=== PATIENT | male | born 1950 | race Caucasian/White ===

== ENCOUNTER 2025-02-27 02:52 | Emergency (ER) | payer MEDICARE, BC, SELFPAY ==
[2025-02-27] VITALS (8 sets, daily range): BP systolic 111–140; BP diastolic 70–94; BMI 25.5
--- NOTE | 2025-02-27 03:03 | ED.GENMED ---
Addendum entered and electronically signed by Carroll Hernández PA-C 02/28/25 10:03:
Positive blood culture, result faxed to [facility] at [phone]
Original Note:
History of Present Illness
General
Chief Complaint: Abdominal Symptoms
Time Seen by Provider: 02/27/25 03:03
History of Present Illness
History of Present Illness:
FOCUSED PAST MEDICAL HISTORY
- Had robotic prostatectomy 3 days ago at [facility]
REVIEW OF OLD RECORDS
- The patient was seen in the Emergency Department in 2013 related to abdominal pain
Note:
CHIEF COMPLAINT(S)
Post-operative nausea and vomiting, abdominal distention, and difficulty breathing following a recent prostatectomy.
HISTORY OF PRESENT ILLNESS
The patient is a 74-year-old male with a history of prostate cancer who underwent robotic-assisted laparoscopic radical prostatectomy with bilateral pelvic lymph node dissection on the . The procedure was performed at [facility], following which
the patient was discharged home. The patient traveled afterward to visit family and attend a recital. As of Thursday night, the patient began experiencing significant vomiting, reporting approximately seven episodes with large volumes of yellow
emesis. The patient describes abdominal distention and a sensation of fullness extending into the chest, resulting in dyspnea. The vomiting ceased around 4 PM, but the abdominal fullness persists. Additionally, the patient developed hiccups, and
following advice, the family refrained from administering further dicyclomine, which the patient had taken for the hiccups. Vital signs reveal adequate oxygen saturation. Surgical wounds are observed on the anterior abdominal wall with scattered
ecchymosis; no acute complications from the surgery were noted in the surgical records. The patient is presently experiencing nausea without significant pain. Prior interventions include one dose of Zofran administered by the patients for
nausea, which provided temporary relief.
EXTERNAL RECORDS REVIEWED
According to records from [facility], the patient underwent robotic-assisted laparoscopic radical prostatectomy with bilateral pelvic lymph node dissection for prostate cancer. There are recent surgical notes from Dr. Joy, indicating no initial
complications from the surgery.
PHYSICAL EXAM
General: Alert, in moderate distress due to nausea and abdominal discomfort.
Skin: Warm, dry, noted ecchymosis from surgical wounds over the anterior abdominal wall.
Neck: Supple, trachea midline.
Cardiovascular: Tachycardic, regular
Respiratory: Respirations are non-labored.
Gastrointestinal: Minimal distention of the abdomen, mild diffuse abdominal tenderness, no peritoneal signs
Musculoskeletal: Normal range of motion, normal strength.
Neurological: Alert and oriented to person, place, time, and situation, no focal neurological deficit observed.
Psychiatric: Cooperative, appropriate mood & affect.
PROBLEM LIST
Acute:
- Post-operative nausea and vomiting
- Abdominal distention and dyspnea
PLAN
- Initiate intravenous fluids for hydration
- Administer antiemetic for nausea relief as requested by the patient.
- Perform a computed tomography (CT) scan to evaluate possible ileus or other postoperative complications.
- Consider nasogastric tube placement for gastric decompression if symptoms persist and are suggestive of bowel obstruction.
DIFFERENTIAL DIAGNOSIS
The Differential Diagnosis includes, in no particular order and is not limited to:
1. Post-operative ileus
2. Bowel obstruction
3. Anastomotic leak
4. Infectious gastroenteritis
5. Post-operative hematoma
6. Peritonitis
7. Torsion or strangulation of bowel
8. Pancreatitis
9. Medication-induced nausea
10. Gastroesophageal reflux disease exacerbation.
SUMMARY OF ENCOUNTER
The patient was evaluated in the emergency department due to post-operative symptoms following prostatectomy, which included nausea, vomiting, and abdominal distention. During the visit, a small bowel obstruction was identified, likely related to an
obstruction transition point at a hernia site. An NG tube was placed, providing significant relief to the patient. The patients lactic acid levels, initially elevated, showed improvement following intravenous fluid administration. Despite mild
tachycardia, the patients overall condition improved. Thorazine was administered for hiccup management.
DISPOSITION
Transfer to [facility] for further management.
ASSESSMENT
Small bowel obstruction possibly related to hernia.
EMERGENCY TREATMENTS ADMINISTERED
Intravenous fluids administered for hydration; Thorazine (chlorpromazine) administered for hiccups; NG tube placement for gastric decompression.
PLAN
Transfer to [facility] for further evaluation and management of bowel obstruction. Consider surgical consultation for potential intervention related to the hernia site.
INDEPENDENT REVIEW OF LABS AND INTERPRETATION OF TESTS
My independent review of lactic acid indicates initial elevation improved after IV fluids (from 4 to 1.7).
MEDICATION RECONCILIATION
Thorazine (chlorpromazine) administered for hiccups.
MEDICAL DECISION MAKING
-Complexity of Data Reviewed: Chronic conditions affecting care include prostate cancer and recent prostatectomy.
-Data:
Category 2: My independent interpretation of patients condition suggests small bowel obstruction secondary to hernia site involvement.
Category 3: Discussion of management with transferring facility for further evaluation and surgical consideration.
-Risk: Prescription medication was administered as Thorazine was given for hiccups. Consideration for admission was arranged with transfer for further management.
DIAGNOSIS
Small bowel obstruction, ICD-10 K56.60.
UPDATE
- Patient lives in [facility] with recent surgery at [facility]
- Marked improvement after NG tube
- Lactic 1.4-1.7 after IV fluids
- Awaiting transfer to [facility] as ER to ER transfer, I spoke to Dr. Lala (ER), Dr. Smith (Gen Surg), Dr. Cabrera (Urol)
- I attempted reduction of the left inguinal hernia and it does appear more flattened and he has no significant pain currently
- Added Thorazine as well today,
Past History
Past History
ED Past Medical History: Hypercholesterolemia, Psychiatric (Anxiety) and Other (Prostatitis, bladder spasms)
ED Past Surgical History: Other (Inguinal hernia repair)
Social History
Tobacco: Non-smoker
Alcohol: Occasional
Personal:
Living: with family
Family History
Family History: Negative Diabetes or Early CAD
Phy Exam
Physical Exam
Physical Exam:
See HPI
Course
Orders/Labs/Results
Orders:
Orders
02/27/25 03:13
CT Pe/abd/pel W Urgent
Reason For Exam: post op SOB, severe vomiting after robotic prostectomy
Complete Blood Count/With Diff Urgent
Comprehensive Metabolic Panel Urgent
Lactic Acid Q4H
Comment: CANCEL 2nd LACTIC ACID IF 1st LACTIC ACID IS LESS THAN 2
Urinalysis Reflex To Culture Urgent
Date Specimen was Collected: 02/27/25
Time Specimen was Collected: 03:09
Urine Microscopic Reflex Cult Urgent
Blood Culture Q30M
DANII Source: Blood/Venous
Specimen Description:
Blood Culture Q30M
DANII Source: Blood/Venous
Specimen Description:
Urine Culture Urgent
DANII Source: U
Specimen Description:
Date Specimen was Collected: 02/27/25
Time Specimen was Collected: 03:09
02/27/25 03:28
0.9% Sodium Chloride 1000 ml [Nss] 1,000 ml IV BOLUS
Ondansetron Injectable [Zofran] 4 mg IV NOW STA
02/27/25 03:29
Ondansetron Injectable [Zofran] 4 mg .ROUTE .STK-MED ONE
02/27/25 03:40
HYDROmorphone [Dilaudid] 0.5 mg IV NOW STA
02/27/25 03:54
0.9% Sodium Chloride 1000 ml [Nss] 1,000 ml IV BOLUS
CefTRIAXone [Rocephin] 1,000 mg IV NOW STA
02/27/25 04:09
0.9% Sodium Chloride 500 ml [Nss] 500 ml IV BOLUS
02/27/25 04:39
Sterile Water [Sterile Water For Injection] 10 ml .ROUTE .STK-MED ONE
02/27/25 04:52
Lactic Acid Urgent
02/27/25 05:48
ChlorproMAZINE [Thorazine] 25 mg 0.9% Sodium Chloride 50 ml [Nss] 50 ml IV NOW
02/27/25 07:15
Lactic Acid Q4H
Comment: CANCEL 2nd LACTIC ACID IF 1st LACTIC ACID IS LESS THAN 2
Abnormal Lab Results
02/27/25
03:13
WBC 12.8 H 10^3/uL
(4.8-10.8)
Absolute Neuts (auto) 10.6 H 10^3/uL
(1.4-6.5)
Absolute Lymphs (auto) 1.1 L 10^3/uL
(1.2-3.4)
Absolute Monos (auto) 1.0 H 10^3/uL
(0.1-0.6)
Neutrophils % 82.6 H %
(42.2-75.2)
Lymphocytes % 8.6 L %
(20.5-51.1)
Chloride 95 L mmol/L
(98-107)
BUN 48 H mg/dl
(9-20)
Creatinine 1.7 H mg/dL
(0.7-1.3)
Glucose 165 H mg/dl
(70-99)
Lactic Acid 4.0 H* mmol/L
(0.7-2.0)
Total Bilirubin 3.3 H mg/dl
(0.2-1.3)
AST 77 H U/L
(17-59)
ALT 89 H U/L
(0-50)
Ur Occult Blood Reflex 4+ A
(Negative)
Urine Bilirubin 1+ A
(Negative)
Leukocyte Esterase Rfl 3+ A
(Negative)
Urine RBC 7-10 A /HPF
(0-2)
Urine WBC (Reflex) 50-60 A /HPF
(0-5)
Urine Bacteria (Reflex) Many A
(Negative)
Urine Albumin (Reflex) 3+ A
(Neg - Trace)
02/27/25 03:13
02/27/25 03:13
Vital Signs
Initial and Last Documented VS:
Initial Vital Signs
Temp Resp
36.3 C 28
02/27/25 02:54 02/27/25 02:54
Last Documented Vital Signs
Temp Pulse Resp BP Pulse Ox
36.3 C 120 23 112/94 97
02/27/25 02:54 02/27/25 05:00 02/27/25 05:00 02/27/25 05:00 02/27/25 05:00
*Pulse Oximetry
Patient hypoxic: no
*Critical Care Note
Total Time (30-74mins, 75-104mins- exclusive of procedures): Not Applicable
ED Attending Note
-
Portions of this chart may have been created with voice recognition software.� Occasional wrong word or��sound alike� substitutions may have occurred due to the inherent limitations of voice recognition software.
Discharge Plan
Departure
Patient Disposition: Acute Care Hospital
Date of Disposition: 02/27/25
Time of Disposition: 05:34
Discharge Problem:
SBO (small bowel obstruction)
Prescriptions:
No Action
Aspirin
81 mg PO DAILY
Fish Oil
1 tab PO DAILY
Paxil
40 mg PO DAILY
levetiracetam [Keppra] 500 mg Tablet
500 mg PO BID
famotidine 20 mg Tablet
20 mg PO PRN PRN (Reason: indegrestion)
simvastatin 20 mg Tablet
20 mg PO DAILY
oxycodone 5 mg Tablet
5 mg PO Q6H PRN (Reason: pain)
Referrals:
Oliver Joe MD [Family Provider, Internal Medicine]
Hospital Transfer
Other hospital: [facility]
I certify that the patient requires transfer: Yes
Discussed case with accepting physician: ER Dr. Lala, Urol Dr. Mcginnis, Gen Surg Dr. Presley
Reason for transfer: continuity of care PCP
Interventions
Interventions:
*Risk Screen - Suicide Last Done: 02/27/25 02:54
*General Assessment Last Done: 02/27/25 03:17
*Neglect/Abuse Screening Last Done: 02/27/25 02:54
*ED COVID-19 Vaccine History Last Done: 02/27/25 03:17
*ED Influenza Vaccine History Last Done: 02/27/25 03:17
[facility] Fall Risk Assessment Tool Last Done: 02/27/25 03:17
WM-Dfqwti-Ucxtwktukc Assessment Last Done: 02/27/25 03:17
Discharge Date and Time
Print Language: MALAGASY
[2025-02-27 03:30] LABS: Hematocrit 49.5 % (39.0-52.0); Hemoglobin 17.2 g/dL (13.0-18.0); Mean Corp Hgb Conc. 34.7 g/dL (33.0-37.0); Mean Corpuscular Volume 83.2 fL (80.0-94.0); Nucleated Red Blood Cells % 0 % (-); Platelet Count 378 10^3/uL (130-400); Red Cell Dist. Width 13.4 % (11.5-14.5)
[2025-02-27 03:31] LABS: Urine Character Slightly Cloudy (Clear)
[2025-02-27] MEDS: ZOFRAN 4 MG IV (03:31)
[2025-02-27] MEDS: NSS 1000 IV ×3 (03:32→06:59)
[2025-02-27 03:44] LABS: Urine Squamous Cell None seen /LPF (Few)
[2025-02-27] MEDS: DILAUDID 0.5 MG IV (03:44)
[2025-02-27 03:45] LABS: Urine White Cell 50-60 /HPF (0-5)
[2025-02-27 03:47] LABS: AST (SGOT) 77 U/L (17-59); Albumin 4.6 g/dl (3.5-5.0); Alkaline Phosphatase 122 U/L (38-126); Blood Urea Nitrogen 48 mg/dl (9-20); Calcium 9.5 mg/dl (8.4-10.2); Carbon Dioxide 25 mmol/L (22-30); Chloride 95 mmol/L (98-107); Estimated Creatinine Clearance 40 ml/min; Glucose 165 mg/dl (70-99); Potassium 4.1 mmol/L (3.5-5.1); Sodium 136 mmol/L (135-145); Total Protein 7.6 g/dl (6.3-8.2); eGFR 41.52
[2025-02-27 03:56] LABS: ALT (SGPT) 89 U/L (0-50)
[2025-02-27] MEDS: ROCEPHIN 1000 MG IV (04:43)
[2025-02-27] MEDS: NSS 500 IV (04:43)
--- NOTE | 2025-02-27 05:09 | EDRN ---
NG tube placed in patient right nare, 500cc of dark brown/red liquid out, hooked to intermittent suction, patient reports feeling much better.
[2025-02-27] MEDS: THORAZINE 51 MG IV (06:06)
--- NOTE | 2025-02-27 06:09 | EDRN ---
Patient was complaining of hiccups which have been constant for the entire morning, meds ordered and given to see if it will help as the hiccups are making him very uncomfortable, otherwise resting comfortably aware we are waiting on transport time,
is at bedside.
[2025-02-27] MEDS: PROTONIX IV 80 MG IV (07:00)
[2025-02-27] MEDS: KEPPRA 500 MG IV (07:00)
[2025-02-27] MEDS: PEPCID 20 MG IV (07:00)
--- NOTE | 2025-02-27 07:00 | EDRN ---
Updated provider that patients heart rate has been increasingly going up, rechecked temp patients temp is 98.2, his hernández bag was emptied and is draining without difficulty, patient also reports that is pain is under control, more fluids ordered
for patient and heart rate to be monitored
--- NOTE | 2025-02-27 07:19 | EDRN ---
Report to Curtis Ledesma
[2025-02-27 08:31] LABS: Hematocrit 41.9 % (39.0-52.0); Hemoglobin 13.7 g/dL (13.0-18.0); Mean Corp Hgb Conc. 32.7 g/dL (33.0-37.0); Mean Corpuscular Volume 87.7 fL (80.0-94.0); Nucleated Red Blood Cells % 0 % (-); Platelet Count 286 10^3/uL (130-400); Red Cell Dist. Width 13.4 % (11.5-14.5)
[2025-02-27 09:23] LABS: Absolute Neutrophils -Man Diff 4.5 10^3/uL (1.4-6.5); Normal RBC Morphology Yes; Platelets Checked Yes; Total Cells Counted 100
== END 2025-02-27 10:10 | disposition short-term general hospital (02) ==
LOC: EMR 02:52
PROVIDERS: Emergency Medicine; EMERGENCY PHYSICIAN Emergency Medicine; FAMILY PHYSICIAN Internal Medicine
DX: K56.609 Unspecified intestinal obstruction, unspecified as to partial versus complete obstruction (principal); E78.00 Pure hypercholesterolemia, unspecified; F41.9 Anxiety disorder, unspecified; N41.9 Inflammatory disease of prostate, unspecified; Z46.59 Encounter for fitting and adjustment of other gastrointestinal appliance and device; Z90.79 Acquired absence of other genital organ(s)
CPT/HCPCS: 99285; 96365; 96375; 96361; 71275; 74177; 80053; 81003; 81015; 83605; 85025; 87040; 87077; 87086; 87186; 87205; 93005; Q9967